=== PATIENT | male | born 1945 | race Caucasian/White ===

== ENCOUNTER 2021-03-19 19:37 | Inpatient (IN) | payer MEDICARE, BC ==
[~2021-03-19] VITALS: Ht 182.9 cm; Wt 104.5 kg
--- NOTE | ~2021-03-19 | DS ---
[facility] [address], [place] [address] Draft ADMISSION DATE: 03/20/2021 DISCHARGE DATE: 03/22/2021 REASON FOR ADMISSION: This 75-year-old white man presented to the emergency room late evening with severe right lower abdominal pain. He is noted to have an elevated white count of more than 18,000. Liver enzymes were normal. The patient has a distant history of prostatectomy and subsequent bladder perforation causing peritonitis a number of years ago requiring operative management. The patient has had chronic recurrent right lower abdominal pain, which culminated in severe pain on the day of admission. His evaluation in the emergency room by Dr. Lynch included a CT scan of the abdomen, which showed no evidence of appendicitis (nonvisualized appendix), but did show peculiar finding of a small bowel anatomy with what appeared to be possibly an internal herniation with marked inflammatory change, localized free peritoneal air. He was admitted for further evaluation and care. PERTINENT PHYSICAL EXAMINATION: GENERAL: A large white man, who does not look systemically toxic, but is uncomfortable. HEENT: Mucous membranes are slightly dry. NECK: Trachea is midline. CHEST: Clear. HEART: Regular without murmur. ABDOMEN: Distended with marked tenderness in the abdominal area, mostly on the right side. HOSPITAL COURSE: Although it was late in the evening past midnight, given his perforated viscus, his peritonitis, and so forth, he was deemed appropriate for operation without delay. He was treated with broad-spectrum antibiotic and taken to operation where a thorough limited laparotomy and exploration of the abdomen was undertaken. 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 Complete lysis of adhesions was undertaken as well as biopsies of the peritoneal fibrinous peel. Additionally, appendectomy was performed as he had a fibrotic appendix and he certainly has some chance of recurrent problems in the future, given his extensive adhesions. Operation regarding the perforated jejunum included segmental bowel resection with end-to-end anastomosis. His operation was completed approximately at 4:30 in the morning. It was prolonged and PATIENT NAME: RUBA PEREYRA DISCHARGE SUMMARY DATE OF : 47 REPORT #: [id number] PHYSICIAN: RUBA WILSON MD PCP: NO PRIMARY CARE PHYSICIAN REPORT IS CONFIDENTIAL AND NOT TO BE RELEASED WITHOUT AUTHORIZATION [facility] [address], [place] [address] Draft difficult. He was begun on a clear liquid diet rather promptly. He had an impressive rapid progress, advanced to full, and ultimately, a regular diet, which he tolerated well. By the time of discharge, he is ambulating well, tolerating a regular diet, had his incisional pain well controlled by oral analgesics and doing well. Cultures of the perforated diverticulum with associated peritoneal fluid grew Klebsiella multosa, which was found to be sensitive to Cipro. On that basis, he will be maintained on Cipro for several days following discharge. In regard to discharge, I have offered to see him in the office, so it is quite some distance for him to come here from [place], [place]; on that basis, he will follow up with his usual primary care provider, Dr. Dang, in [place], [place]. I am available to him by phone as necessary and he understands that. DISCHARGE INSTRUCTIONS: Avoidance of lifting more than 20 pounds for four weeks following date of surgery. He is permitted to shower. He will keep Steri-Strips on. He has no restrictions on his food intake. DISCHARGE MEDICATIONS: 1. Cipro 500 mg. One tablet p.o. b.i.d. #14. 2. Ibuprofen 600 mg p.o. q.6 hours as needed for pain, #60. 3. Tylenol with oxycodone (Percocet) 7.5/325, 1-2 p.o. q.6 hours as needed for pain in lieu of Tylenol itself, quantity #10. 4. Tylenol 500 mg tablets two tablets p.o. q.6 hours as needed, #60. He will resume his usual medications including, 1. Amlodipine. 2. Benazepril (Lotrel one cap p.o. nightly). 3. Aspirin 81 mg p.o. at bedtime. 4. Atorvastatin 10 mg p.o. at bedtime. 5. Doxazosin 1 mg p.o. at bedtime. 6. Omeprazole 20 mg b.i.d. for reflux. 7. Hemp oil applied topically as needed for shoulder pain. DISCHARGE DIAGNOSES: 1. 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 2. Encapsulating peritonitis (related probably to previous peritonitis, status post extensive lysis of adhesions of small bowel). 3. Appendectomy (fibrotic appendix). 4. Findings of abdominal infection, Klebsiella multosa, sensitive to Cipro. 5. Obesity. 6. Hypertension. PATIENT NAME: RUBA PEREYRA GIOVANI DISCHARGE SUMMARY DATE OF : 47 REPORT #: [id number] PHYSICIAN: RUBA WILSON MD PCP: NO PRIMARY CARE PHYSICIAN REPORT IS CONFIDENTIAL AND NOT TO BE RELEASED WITHOUT AUTHORIZATION [address] [place], [place] [address] Draft 7. Dyslipidemia. 8. Distant history of prostatectomy for cancer with complication of perforated bladder and generalized peritonitis (no doubt leading to encapsulating peritonitis currently). MD DAVID Rodriguez/SAMANTHA /[id number] cc: Claudia Madrigal Dr.ho Copies: ~ PATIENT NAME: RUBA PEREYRA DISCHARGE SUMMARY DATE OF : 47 REPORT #: [id number] PHYSICIAN: RUBA WILSON MD PCP: NO PRIMARY CARE PHYSICIAN REPORT IS CONFIDENTIAL AND NOT TO BE RELEASED WITHOUT AUTHORIZATION
[2021-03-19] MEDS ORDERED: LOTREL 10-40 M1 EACH PO (20:23)
[2021-03-19] MEDS ORDERED: BAYER CHEWABLE81 MG PO (20:24)
--- NOTE | 2021-03-20 03:53 | NUR ---
IV PATENT IN LAC.
--- NOTE | 2021-03-20 04:50 | NUR ---
PT ARRIVES TO THE FLOOR VIA HOSPITAL BED. PT IS AWAKE, DROWSY AND DISORIENTED TO PLACE AND EVENT. PT IS ORIENTED TO SELF, HIS AND DATE/YEAR. CHARGE NURSE REN AND THIS RN IN ROOM WITH SURGERY NURSE.
--- NOTE | 2021-03-20 04:50 | NUR ---
pt BACK TO MEDICAL FLOOR WITH EXERCISE SCIENCE INTERNSHIP TOMMIE. AT BEDSIDE. pt CONFUSED, DROWSY. REORIENTATION PROVIDED. PRIMARY RN ASSESSING pt. DRINKS OF WATER PROVIDED. CALL LIGHT GIVEN TO . 4L OXYGEN BY NC IN PLACE. APNIC EPISODES NOTED AT REST. SPO2 WNL. CPOX ON. pt REQUESTING TO REST AT THIS TIME.
[2021-03-20] MEDS ORDERED: ATORVASTATIN CA10 MG PO (04:57)
[2021-03-20] MEDS ORDERED: DOXAZOSIN MESYLA1 MG PO (04:58)
--- NOTE | 2021-03-20 05:00 | NUR ---
PT CONTINUES TO BE DISORIENTED TO SITUATION. REPEATS "THIS IS SO WIERD". ASSESSEMENT PERFORMED. PT REPORTS NO PAIN, ABDOMEN IS TENDER TO TOUCH, MIDLINE INCISION WOUND IS CDI. ESPINOZA DRAINING CLEAR YELLOW URINE. CMS INTACT, VSS SPO2 95-96% ON 4L NC. SCDS ON. RADIAL AND PEDAL PULSES STRONG. PT'S AT BEDSIDE.IVF INFUSING PER ORDERS. PT IS SIPPING WATER. CALL LIGHT WITHIN REACH.
--- NOTE | 2021-03-20 05:03 | NUR ---
03/20/21 0503 Luiza Gutierrez 0337 PT ARRIVED IN PACU NON RESPONSIVE TO NOXIOUS STIMULI WITH OPA IN PLACE. 0341 PT REACTIVE. OPA REMOVED. 0345 PT SNORING. REU. 0400 PT AWAKENS AND ASKS "WHERE AM I AT." REMINDED PT OF SURGERY AND RESTING. 0415 PT TRYING TO CRAWL OUT OF BED. REORIENTED PT. TAKING SIPS OF WATER FOR DRY MOUTH. 0430 PT ORIENTED TO PERSON AND TIME. UNSURE OF PLACE AT THIS TIME. YEAST MAKER WITH PT ABOUT TRIP TO [facility]. 0445 PT ASKING FOR PRATIK. 0450 TO ROOM 114. AT BEDSIDE HOLDING PT'S HAND. REPORT GIVEN TO RN.
--- NOTE | 2021-03-20 05:57 | NUR ---
in room for post op vitals #2. pt awakes with touch. reports no pain although states he has had some hallucinations. pt is calm and relaxed in bed. pt's in room. call light within reach.
--- NOTE | 2021-03-20 06:55 | NUR ---
POST OP VSS. pt AWAKENS TO RN ENTERING ROOM. URINE DRAINING FROM ESPINOZA WNL. pt DENIES PAIN AT THIS TIME. SPO2 WNL WITH 4L OXYGEN BY NC. CALL LIGHT IN REACH. IN ROOM.
--- NOTE | 2021-03-20 07:28 | EKG ---
[facility] [address] [facility] [place] [address] Signed Normal sinus rhythm Nonspecific T wave abnormality Abnormal ECG No previous ECGs available Confirmed by RENE WALDEN MD ([id number]) on 03/20/2021 7:27:56 AM Electronically Signed By: RENE WALDEN MD 03/20/21 0728 PATIENT NAME: RUBA PEREYRA Electrocardiogram DATE OF : 47 PHYSICIAN: RENE WALDEN MD REPORT #: [id number] REPORT IS CONFIDENTIAL AND NOT TO BE RELEASED WITHOUT AUTHORIZATION
--- NOTE | 2021-03-20 07:59 | NUR ---
REPORT RECEIVED. PT IN BED. DENEIS PAIN OR NAUSEA. AT BEDSIDE. LAST POST-OP VITALS COMPLETED AND STABLE. ABDOMEN INCISION C/D/I. TITRATED TO RA. SATURATIONS STAY ABOVE 93%. CALL LIGHT IN REACH.
[2021-03-20] MEDS ORDERED: OMEPRAZOLE20 MG PO (09:23)
--- NOTE | 2021-03-20 09:42 | NUR ---
In to visit with patient, who is awake and oriented to person, place and time. This is a very pleasant gentleman who was traveling with his from [place] to meet his children/grandchildren at the [facility]. Mr Dominguez states that he had his drive secondary to the pain, and he came to the ED last night after stopping at [facility], and securing a room. He states that he did not want to come in but the pain got so bad that he "had no choice." Mr Dominguez is very happy with his care, stating "You guys go a very good job here." Mr Dominguez was also very complimentary of Dr. Duong, his surgeon here at the hospital. He states that his pain is well controlled, and the staff "are very good." Mr Dominguez has no questions or concerns at this time.
--- NOTE | 2021-03-20 10:49 | NUR ---
ROUNDED WITH DR WILSON. POC DISCUSSED WITH PT. ALEXIS FORBES. 550ML OUT. PT TOLERATED WELL. PT AGREED TO AMBULATED HALLS ONCE GETS BACK. WANTS TO REST A LITTLE FOR NOW. DENIES PAIN.
[2021-03-20] MEDS ORDERED: HEMP OIL TOP (11:42)
--- NOTE | 2021-03-20 11:42 | NUR ---
MED REC COMPLETE
--- NOTE | 2021-03-20 12:08 | NUR ---
REPORTING 06/09 PAIN. [facility] ADMINSTERED. PT DRANK ALL OF CLEAR LIQUID LUNCH. [facility] WILL PLAN FOR WALK SOON.
--- NOTE | 2021-03-20 13:05 | NUR ---
PT OUT AMBULATING HALLS.
--- NOTE | 2021-03-20 13:30 | NUR ---
PT BACK TO ROOM AFTER WALKING HALLS. REPORTS 5/10 PAIN. REQUESTING TYLENOL. OFIMEV ADMINISTERED. FINISHED ALL OF CLEAR LUNCH TRAY. NO NAUSEA. DENIES FURTHER NEEDS. CALL LIGHT IN REACH.
--- NOTE | 2021-03-20 15:10 | NUR ---
Spoke with pt and . 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 He and were traveling through when he has severe pain an required bowel resection. Pt has had issues in the past. They reside in [place], [place] and will return there when medically cleared. He uses a cane for long distance walking and 0 other DME. He denies other is- sues. is very supportive and will assist as needed. Pt's pcp is Dr. Sepulveda in [place]. He also sees a drill press operator numerical control and rf technician. Plan is for dc to home when cleared medically. Pt had concern he may need a walker. PT completed eval and felt he does well with a cane and does not requirer a walker.
--- NOTE | 2021-03-20 15:23 | NUR ---
PT OUT WORKING PT THERAPY IN HALLS.
--- NOTE | 2021-03-20 17:00 | NUR ---
PT TOLERATED CLEAR DINNER WELL. SITTING UP IN CHAIR. DENIES NAUSEA. PAIN WELL CONTROLLED.
--- NOTE | 2021-03-20 17:10 | NUR ---
DR WILSON CALLED BACK TO FLOOR. TOLD ABOUT TEMP. ORDERS TO DRAW BLOOD CULTURES. BLOOD CULTURE PULLED FROM RIGHT HAND AND BROWN PORT AND SENT TO LAB.
--- NOTE | 2021-03-20 18:18 | NUR ---
PATIENT SITTING IN CHAIR TALKING ON PHONE. VITALS AND I&O'S CHARTED. CALL LIGHT IN REACH. NO FURTHER NEEDS AT THIS TIME.
--- NOTE | 2021-03-20 19:30 | NUR ---
BEDSIDE REPORT RECEIVED FROM PONCHO DICK. pt RESTING IN CHAIR. SPO2 WNL ON RA. pt RATES PAIN 2/10 AT REST, 5-6/10 WITH MOVEMENT. IVF INFUSING WNL. CALL LIGHT WITHIN REACH.
--- NOTE | 2021-03-20 20:15 | NUR ---
PRN PAIN MEDICATION ADMINISTERED FOR 5-6/10 PAIN WITH MOVEMENT. BOWEL TONES ACTIVE X 4, ABD DISTENDED, pt STATES IT'S A LOT SOFTER THAN IT WAS. FINE CRACKLES RLL. IS PROVIDED, pt DEMONSTRATES USE, 2000 ML BEST EFFORT. FOLDED DRAW SHEET PROVIDED TO BRACE WITH GETTING IN AND OUT OF CHAIR. IVF INFUSING WNL. IN ROOM. AMBULATING IN HALLWAY AT THIS TIME, SBA.
--- NOTE | 2021-03-20 21:10 | NUR ---
CALL LIGHT ANSWERED. pt QUESTIONING HOME BP MEDICATIONS. REVIEWED VS WITH PATIENT, DISCUSSED HOME MEDICATIONS WILL MOST LIKELY START TOMORROW HAD SURGERY TODAY. pt VERBALIZES UNDERSTANDING. REQUESTING TO SIT IN CHAIR AT THIS TIME. RATES PAIN 2/10. CALL LIGHT IN REACH.
--- NOTE | 2021-03-20 22:49 | NUR ---
CURRENTLY PT BED IS UNPLUGGED. PT HAS BEEN COMPLAINING THAT THE AIR MATTRESS ON THE BED IS PREVENTING HIM FROM SLEEPING AND "WHAT AM I SUPPOSE TO DO". EDUCATED ABOUT THE IMPORTANCE OF THE AIR MATTRESS AND THE PRESSURE RELIEF. HE STATED THAT HE HAS AN AIR MATTRESS AT HOME AND IT DOESN'T DO THIS. TRIED THE SLEEP MODE TO MINIMIZE THE FREQUENCY OF THE AIR SYSTEM ADJUSTMENT, GAVE HIM 5 MIN, AND WENT BACK AND CHECKED ON HIM. WHILE THE MATTRESS DOESN'T GO THROUGH MANY AIR EXCHANGES, IT WENT THROUGH TOO MANY AND "I WON'T BE ABLE TO SLEEP". WANTS ANOTHER BED, HOWEVER, EXPLAINED THAT MANY OF THE BEDS ARE THE SAME, ALSO SUGGESTED AN EGGCRATE MATTRESS OVER THE CURRENT MATTRESS, BUT HE DECLINED SAID THAT HE THINKS HAVING THE BED UNPLUGGED MIGHT WORK, EDUCATED HIM ON THE FIRM MATTRESS AND THE NEED FOR PRESSURE RELIEF. DID FIND A BED THAT MIGHT WORK, TOLD PT THAT THE BED IS OUTSIDE HIS ROOM AND WHEN HE GETS UP TO THE BATHROOM WE WILL SWITCH THE BED OUT. HE SAID IT WILL BE OK, HOWEVER, THE PLAN WILL BE TO MOVE THE BED IN.
--- NOTE | 2021-03-21 01:19 | NUR ---
CHECKED ON pt. IV PUMP ALARMING, NEW BAG IVF INFUSING WNL. pt RESTING IN BED WITH EYES CLOSED. SCDS ON.
--- NOTE | 2021-03-21 02:20 | NUR ---
pt AWAKENS TO RN ENTERING ROOM. VITAL SIGNS STABLE. SBA TO RESTROOM FOR VOID AND BACK TO BED. pt RATES PAIN 4/10 "IT FEELS LIKE ITS GETTING BETTER EACH TIME I GET UP". DENIES NEED FOR PRN PAIN MEDICATION. BOWEL TONES ACTIVE, ABD SOFT, DISTENDED, NON-TENDER WITH PALPATION. pt REQUESTING TO EAT MORE FOR BREAKFAST, EXPLAINED WILL ASK MD IN AM. IVF INFUSING WNL. CALL LIGHT IN REACH. BED ALARM ON.
--- NOTE | 2021-03-21 06:58 | NUR ---
pt RESTING IN BED AWAKE, STATES RESTED FOR A FEW HOURS. VSS. URINAL EMPTIED. pt REQUESTING CREAM OF WHEAT FOR BREAKFAST. CALLED, NEW ORDERS FOR FULL LIQUID DIET REPEATED BACK. ORDERS UPDATED.
--- NOTE | 2021-03-21 07:37 | NUR ---
this rn received report from kathleen arevalo. pt standing at bedside when this rn entered room. pt states that he is wanting to get better and advance his diet and movement at a good pace. pt denies intolerable pain.
--- NOTE | 2021-03-21 08:05 | NUR ---
THIS RN IN PTS ROOM TO CHECK ON PT. PT STATES THAT HIS PAIN IS 4/10 WHEN HE MOVES AROUND AND WORSE WHEN HE SNEEZES. PT STATES THAT AT REST HIS PAIN IS 1/10. PT STATES THAT HE HAS NO NOTED NAUSEA WITH EATING AND IS DOING WELL. DRESSING CLEAN/DRY/INTACT.
--- NOTE | 2021-03-21 09:47 | NUR ---
IN TO HANG NEW BAG OF LR, INFUSING AT 125 MLS/HR. PT STATES HE FEELS SOME SLIGHT DISCOMFORT R/T BLOATING. ENCOURAGED PT TO WALK AND PT AGREED. AMBULATED 1 LARGE LAP AROUND NURSES STATION, TOLERATED WELL.
--- NOTE | 2021-03-21 09:56 | OR ---
[facility] [address], [place] [address] Signed DATE OF OPERATION: 03/20/2021 SURGEON: Ruba Wilson MD PREOPERATIVE DIAGNOSES: Acute peritonitis, perforated viscus with localized free air, possible internal hernia. POSTOPERATIVE DIAGNOSES: 1. Perforated jejunal diverticulum. 2. 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 History of mesh implant, abdominal wall (newly revealed). PROCEDURES: 1. Laparotomy with extensive lysis of adhesions. 2. Segmental small bowel resection with end-to-end enteroenterostomy (jejunum). 3. Appendectomy. 4. Peritoneal biopsy (capsulitis biopsy). ANESTHESIA: General endotracheal, Bassem Boudreaux CRNA, as well as postoperative bilateral TAP block. INDICATION: This 75-year-old white male presented to the emergency room late in the evening today, with severe right lower abdominal pain. He is noted to have an elevated white count greater than 18,000. Liver enzymes were normal. The patient has a distant history of prostatectomy with subsequent bladder perforation causing peritonitis several years ago, requiring operative management. The patient also has chronic recurrent right lower abdominal pain, which culminated in severe pain today. His evaluation in the emergency room by Dr. Mina included a CT scan of the abdomen, which showed no evidence of appendicitis (appendix nonvisualized), but did show a peculiar finding of his small bowel anatomy with what appeared possibly to be internal herniation with marked inflammatory change and localized free peritoneal air. Clinical examination shows peritonitis, particularly tender in the right lower abdomen. Despite late hour (midnight), I have recommended exploration promptly for perforated viscus. He has been given Zosyn antibiotic, Pepcid intravenously, and is to undergo laparotomy and remedy of the problem whatever its cause. The risks of bleeding, infection, need for bowel resection, and other unforeseen complications were reviewed with the patient and his . They understand and wished to proceed. Electronically Signed By: RUBA WILSON MD 03/21/21 0956 PATIENT NAME: RUBA PEREYRA OPERATIVE REPORT DATE OF : 47 REPORT #: [id number] PHYSICIAN: RUBA WILSON MD PCP: NO PRIMARY CARE PHYSICIAN REPORT IS CONFIDENTIAL AND NOT TO BE RELEASED WITHOUT AUTHORIZATION [facility] [address] [place], [place] [address] Signed FINDINGS: Through limited midline incision abdominal entry showed a milky somewhat purulent appearance. There was not generalized peritonitis. There appeared to be a sclerosing capsulitis of the peritoneal cavity. Not mentioned by the patient nor expected at all was finding of properitoneal mesh from prior abdominal wall reconstruction or hernia repair. This was peculiar, as incisions for such implantation were not seen on abdominal preparation. Later, multiple small trocar site incisions were noted. Ultimately, it was found the offending problem was a perforated jejunal diverticulum, only partially contained in the mesentery itself. The sclerosing capsulitis of the peritoneal cavity was likely related to distant history of bladder perforation and abdominal peritonitis previously. The appearance of small bowel loops with unusual angulation deformity and various pockets within the mesentery, likely gave appearance of internal herniation, but there was no such internal herniation that I could see. The adhesive tissue was biopsied and the bowel freed entirely from the ligament of Treitz to the terminal ileum. This took a long time but was accomplished safely and without enterotomy. Segmental resection of the jejunal perforated segment was undertaken with end-to-end anastomosis with good functional appearance. DESCRIPTION OF PROCEDURE: The patient was brought to the operating room, given a general endotracheal anesthetic. Preoperative antibiotic Zosyn had been given. Sequential compression device stockings were used. A Frias catheter was placed without problem. The abdomen was clipped and prepared with a chlorhexidine solution and draped sterilely. An incision was made in the midline above and below the umbilicus. The abdomen was entered showing a somewhat milky appearance of fluid. There was no sign of generalized erythema or peritonitis and no ascites. The small bowel was found to have a relatively thickened capsule over much of it. The bowel loops could be freed generally. Upon withdrawal of the bowel loops from the abdominal cavity, segments of bowel were markedly incorporated with each other in this fibrous capsule. Ultimately the area in question was found, which proved to be about 50 cm from the ligament of Treitz and was a perforated mesenteric side jejunal diverticulum. There was localized peritonitis and purulence in this area. This area was marked with a silk stitch on the antimesenteric side to be attended to later. The small bowel was freed of its adhesions throughout, as were angulation deformities and findings that would suggest likely cause of his chronic right lower abdominal pain. Extensive lysis of adhesions was undertaken, ultimately freeing the entire bowel from the ligament of Treitz to the terminal ileum. Extreme care was taken to avoid any enterotomy and there were no enterotomies throughout the procedure. The sigmoid colon was rather mobile, as was the right colon. Once the bowel was completely freed, Electronically Signed By: RUBA WILSON MD 03/21/21 0956 PATIENT NAME: RUBA PEREYRA OPERATIVE REPORT DATE OF : 47 REPORT #: [id number] PHYSICIAN: RUBA WILSON MD PCP: NO PRIMARY CARE PHYSICIAN REPORT IS CONFIDENTIAL AND NOT TO BE RELEASED WITHOUT AUTHORIZATION [facility] [address] [place], [place] [address] Signed examination of the ileum and cecum was undertaken and a fibrotic long appendix was noted. Appendectomy was deemed advisable under the circumstances of his abdominal condition and some possibility of future issues, particularly given his peritoneal encapsulated adhesions. The mesentery was secured with hemostats to vascular pedicles to the appendix secured with 2-0 silk ties. The base of the appendix was crushed and milked distally and the crush ricardo was ligated with a 2-0 Vicryl suture. The appendix was amputated. The stump was cauterized and inverted with 2-0 Vicryl suture. The small bowel was run once again showing no sign of enterotomy, only the perforated diverticulum on the mesenteric side of the jejunal diverticular perforation. Careful consideration of management was made. It was deemed most advisable to do segmental small bowel resection. The mesentery was scored with electrocautery and secured with hemostats and ligated with 2-0 silk ties. A KAYLAH stapling device was used to transect the segment of bowel. An end-to-end enteroenterostomy was then accomplished in a two layer technique with interrupted 3-0 silk suture and interrupted 3-0 Vicryl suture. The mesenteric defect was secured with running 3-0 silk. Irrigation was undertaken. During the course of the extensive lysis of adhesions, several segments of the sclerosing capsulitis of the fibrinous covering of the bowel was sent for pathology; consideration for examination for granulomatous peritonitis findings will be made with the pathologist. Attention was turned towards closure after irrigation of the abdomen. Midline fascia, which included divided prosthetic mesh was reapproximated with running #1 Prolene suture. Subcutaneous tissue was irrigated and the skin closed with running subcuticular 3-0 Vicryl. Steri-Strips were applied, as was an Acticoat dressing. The patient then underwent bilateral TAP blocks for postoperative analgesic benefit by the computer typesetter keyliner. He was ultimately extubated and transferred to recovery room in good condition having suffered no complication. Sponge, needle, and instrument counts reported as correct x3. Blood loss was 25 mL. Operation was prolonged difficulty related to adhesiolysis, that was accomplished safely. Ending time about 4;30 am. Ruba Wilson MD /MODL /[id number] Electronically Signed By: RUBA WILSON MD 03/21/21 0956 PATIENT NAME: RUBA PEREYRA OPERATIVE REPORT DATE OF : 47 REPORT #: [id number] PHYSICIAN: RUBA WILSON MD PCP: NO PRIMARY CARE PHYSICIAN REPORT IS CONFIDENTIAL AND NOT TO BE RELEASED WITHOUT AUTHORIZATION [facility] [address] [place], [place] [address] Signed cc: Adolfo Mina MD Copies: ADOLFO MINA MD ~ Electronically Signed By: RUBA WILSON MD 03/21/21 0956 PATIENT NAME: RUBA PEREYRA OPERATIVE REPORT DATE OF : 47 REPORT #: [id number] PHYSICIAN: RUBA WILSON MD PCP: NO PRIMARY CARE PHYSICIAN REPORT IS CONFIDENTIAL AND NOT TO BE RELEASED WITHOUT AUTHORIZATION
--- NOTE | 2021-03-21 09:56 | HP ---
[facility] [address], [place] [address] Signed ADMISSION DATE: 03/19/2021 REASON FOR ADMISSION: Probable perforated bowel with associated internal hernia. HISTORY OF PRESENT ILLNESS: This 75-year-old white man is from [place], [place] and is accompanied by his . They are traveling to [place], [place] from [place], [place] to have a family vacation. The patient has had longstanding episodic right lower abdominal pain, which has culminated over the past 12 hours or so to severe and intense right lower abdominal pain. He was evaluated by Dr. Mina for possibility of appendicitis. He was noted to have an elevated white count of 18.5. The CT scan showed no evidence of appendicitis (appendix not certainly visualized), but did show a loop of small bowel with some associated free air, possibly related to internal hernia obstruction and perforation. He is admitted for further evaluation and care to include emergency operation. The patient has had no nausea or vomiting and nothing to suggest total bowel obstruction particularly. He has had chronic pain in this area for quite some time, only worsening and more severe today. PAST MEDICAL HISTORY: Includes hypertension as well as abdominal obesity. He also has dyslipidemia. CURRENT MEDICATIONS: Include atorvastatin, amlodipine, benazepril, doxazosin, omeprazole, and ursodiol. PAST SURGICAL HISTORY: Includes prostatectomy with concurrent bladder injury in the distant past ([place], [place]) requiring remedy of the perforated bladder. He has had other issues along the way that have been problematic for his bladder, but in recent times no significant issue. Notably, he has voided in the ER without problem. SOCIAL HISTORY: He is retired can intake worker, prior [employer]. Lives in [facility]. REVIEW OF SYSTEMS: He denies any shortness of breath or chest pain. He has had no dysphagia, dysuria, or hematemesis. Electronically Signed By: RUBA WILSON MD 03/21/21 0956 PATIENT NAME: RUBA PEREYRA HISTORY AND PHYSICAL DATE OF : 47 REPORT #: [id number] PHYSICIAN: RUBA WILSON MD PCP: NO PRIMARY CARE PHYSICIAN REPORT IS CONFIDENTIAL AND NOT TO BE RELEASED WITHOUT AUTHORIZATION [facility] [address], [place] [address] Signed PHYSICAL EXAMINATION: GENERAL: This is a pleasant white man who does not look particularly systemically toxic (yet). VITAL SIGNS: His vital signs show a temperature of 98.7, pulse of 81, blood pressure 143/69, O2 saturation on room air is 95%. HEENT: Mucous membranes are somewhat dry and IV is running concurrently. Trachea is midline. CHEST: Clear. HEART: Regular without murmur. ABDOMEN: Obese, but soft. He has peritoneal signs including severe tenderness in the right lower quadrant. Rovsing sign is actually equivocal. Faint trocar site scars are noted. EXTREMITIES: Show no clubbing, cyanosis, or edema. LABORATORY STUDIES: Show a white count of 18.5, hematocrit of 44.4, platelets 282,000. Chem profile shows an elevated creatinine of 1.29, glucose 132. Liver enzymes are normal. Lipase 22. Urinalysis; specific gravity 1.035, otherwise normal. COVID test is pending currently. ASSESSMENT: The patient has peritonitis and CT scan findings suggestive of perforated viscus internally, with strong suggestion of a probable internal hernia. My review of the CT scan and review of the report provided by the nighttime radiologist shows an unusual pattern of the sigmoid colon and small bowel loop which has deja enteric inflammatory change and a suggestion of free air. I have some suspicion that this may represent a transmesenteric herniation of small bowel through the sigmoid mesentery given the location of the sigmoid and a bowel loop, which appears to be internally obstructed. Remedy for this problem likely would include laparotomy with reduction of the hernia, probable resection of bowel if it is gone to the point of perforation due to necrosis. The risk of bleeding, infection, need for ostomy unlikely, as well as need for bowel resection and other indicated procedures were reviewed in detail. He understands and wished to proceed. Additionally noted was a splint on his right hand. It sounds as though he has had progressive carpal tunnel problems. He is considering surgical remedy of this as he is right-hand dominant. There is no sign of acute problem now that the splint on his hand remains in place. Electronically Signed By: RUBA WILSON MD 03/21/21 0956 PATIENT NAME: RUBA PEREYRA HISTORY AND PHYSICAL DATE OF : 47 REPORT #: [id number] PHYSICIAN: RUBA WILSON MD PCP: NO PRIMARY CARE PHYSICIAN REPORT IS CONFIDENTIAL AND NOT TO BE RELEASED WITHOUT AUTHORIZATION [facility] [address], [place] [address] Signed Ruba Wilson MD JM/MODL /[id number] cc: Adolfo Mina MD Copies: ADLOFO MINA MD ~ Electronically Signed By: RUBA WILSON MD 03/21/21 0956 PATIENT NAME: HAFSARUBA HISTORY AND PHYSICAL DATE OF : 47 REPORT #: [id number] PHYSICIAN: RUBA WILSON MD PCP: NO PRIMARY CARE PHYSICIAN REPORT IS CONFIDENTIAL AND NOT TO BE RELEASED WITHOUT AUTHORIZATION
--- NOTE | 2021-03-21 10:30 | NUR ---
I was able to meet with Mr. Dominguez this morning in regards to his care at the hospital. Mr. Dominguez remains very happy with his care, stating "They are super great. The surgeon is also very proffessional." Mr. Dominguez' also came in the room while we were visiting. She also expressed gratitude for the care that her has had while here in the hospital. We were also able to discuss some information regarding Mr. Dominguez upcoming discharge. We talked about the importance of keeping his follow-up appointments, and taking his medication properly. I also let Mr. Dominguez know that a pharmacist would discuss all his home medications with him prior to his discharge from the hospital. Our discussion was very pleasant, at this time Mr. Dominguez, and his both deny further questions or concerns.
--- NOTE | 2021-03-21 11:00 | NUR ---
THIS RN IN PTS ROOM TO CHECK ON PT. PT STATES THAT HIS PAIN IS CREEPING UP THERE AND WOULD LIKE PAIN MEDS AFTER LUNCH. THIS RN STATED UNDERSTANDING. PT HAS NO OTHER CONCERNS AT THIS TIME
--- NOTE | 2021-03-21 12:15 | NUR ---
PATIENT UP IN HIS CHAIR FOR LUNCH, AT SIDE. WARMS WIPES AND SHAVING CREAM PROVIDED FOR PERSONAL USE. CALL LIGHT IN REACH, NO OTHER NEEDS AT THIS TIME
--- NOTE | 2021-03-21 13:30 | NUR ---
THIS RN IN PTS ROOM TO CHECK ON PT AFTER HE GOT PAIN MEDS. PT WAS JUST OUT WALKING THE HALLS. PTS AT BEDSIDE. PT STATES THAT HIS PAIN IS MUCH BETTER AFTER THE PAIN MEDS. PT ALSO REPORTS THAT HE HAS BEEN PASSING GAS, PT HAS NO OTHER CONCERNS AT THIS TIME.
--- NOTE | 2021-03-21 14:00 | NUR ---
Spoke with pt and . States he is feeling well and was able to take thin mashed potatoes. Wants to go home tomorrow. Again encouraged to not [place] out to fast. is in agreement and cont. to remind pt he should stay until cleared by . They deny needs for dc.
--- NOTE | 2021-03-21 17:30 | NUR ---
PT CALLED RN INTO ROOM TO CHANGE FLUID BAG. PT SITTING IN CHAIR AND USING IS. PT STATES THAT HIS PAIN IS DOING GOOD. AT BEDSIDE. NO CONCERNS NOTED BESIDES WANTING REGULAR FOOD
--- NOTE | 2021-03-21 21:15 | NUR ---
PATIENT SITTING UP IN BEDSIDE ARM CHAIR. THIS RN AND SHAHRAM EUBANKS ARE IN THE ROOM. PATIENT GIVEN 30MG IV TORADOL FOR 4/10 ABD PAIN AND PATIENT GIVEN HIS EVENING MEDS. PATIENT'S IS SITTING ON THE COUCH VISITING. PATIENT'S WATER REFILLED AND CHA IS GOING TO BRING THE PATIENT A SNACK. PATIENT HAS NO OTHER CARE NEEDS AT THIS TIME. CALLLIGHT IS IN REACH.
--- NOTE | 2021-03-21 21:40 | NUR ---
IN TO GET VITALS, PT RECENTLY VOIDED, CRACKERS FOR PT TO SNACK ON PROVIDED, BREAKFAST ORDER WRITTEN DOWN, NO FURTHER NEEDS AT THIS TIME
--- NOTE | 2021-03-21 23:30 | NUR ---
PATIENT RESTING QUIETLY IN BED ON HIS RIGHT SIDE, EYES CLOSED, RESPIRATIONS REGULAR AND EVEN. PATIENT'S ON THE SOFA LOOKING AT HER PHONE. HAD TO RESET THE IV PUMP DUE TO A DISTAL OCCLUSION. NO TOHER CARE NEEDS NOTED IN THE ROOM AT THIS TIME. CALL LIGHT IS IN REACH.
--- NOTE | 2021-03-22 01:28 | NUR ---
PATIENT CALLED AND IV WAS BEEPING. IV IS DONE AND SL. PATIENT'S URINAL EMPTIED AND PATIENT HAS NO OTHER NEEDS AT THIS TIME. CALL LIGHT IN REACH AND PATIENT'S IS ASLEEP ON THE COUCH.
--- NOTE | 2021-03-22 02:28 | NUR ---
PATIENT RESTING QUIETLY, EYES CLOSED, RESPIRATIONS REGULAR AND EVEN, CALL LIGHT IN REACH. PATIENT'S IS ASLEEP ON THE COUCH.
--- NOTE | 2021-03-22 03:34 | NUR ---
PATIENT RESTING QUIETLY IN LOW FOWLERS POSITION, EYES ARE CLOSED, RESPIRATIONS REGULAR AND EVEN, CALL LIGHT IN REACH. PATIENT'S IS ASLEEP ON THE SOFA.
--- NOTE | 2021-03-22 05:00 | NUR ---
PATIENT RESTING QUIETLY IN BED SUPINE. RESPIRATIONS ARE EVEN AND REGULAR, EYES ARE CLOSED, IS ASLEEP ON THE COUCH, CALL LIGHT IS IN PATIENT'S REACH.
--- NOTE | 2021-03-22 06:15 | NUR ---
VITALS DONE AT THIS TIME
--- NOTE | 2021-03-22 06:18 | NUR ---
PATIENT HAS SLEPT WHEN STAFF HAS NOT NEEDED TO BE IN THE ROOM. PATIENT'S LUNGS ARE CLEAR, BOWEL TONES ACTIVE, AND PATIENT'S MIDLINE ABD INCISION IS C/D/I. PATIENT SALINE LOCKED AND IS INDEPENDENT IN THE ROOM. PATIENT'S HAS SPENT THE NIGHT SLEEPING ON THE COUCH. VS STABLE. CALL LIGHT IS IN REACH.
--- NOTE | 2021-03-22 09:15 | NUR ---
REPORT RECEIVED FROM NIGHT RN AND PT. CARE RESUMED. PT. IS UP IN THE CHAIR WITH . ALERT AND ORIENTED. PT. STATES HIS PAIN IS 3/10 ACHING IN HIS ABDOMEN AND WORSE WITH MOVEMENT. ADMIN. PRN MOTRIN. LUNGS CLEAR AND BOWEL TONES HYPOACTIVE IN ALL 4 QUADS. PT. HAD A SMALL BM THIS MORNING. TRACE EDEMA PRESENT IN BLE AND PT. STATES IS NORMAL FOR HIM. ABD MIDLINE ACTICOAT DRESSING IS C.D.I. PT. UP TO AMBULATE WITH .
--- NOTE | 2021-03-22 10:45 | NUR ---
Spoke with pt and and they plan on dc today if Dr. Lowry in agreement. Plan to dc to [facility]. Son and grandchildren they were going to meet near [place] for vacation, are on their way to [facility] so they can see them. Plan to stay at [facility] through [place]. states this makes her feel better, as they will remain in the area if pt needs anything. She is concerned about the drive to [place].
--- NOTE | 2021-03-22 13:59 | NUR ---
PT. RESTING IN CHAIR WITH PRESENT. ALERT AND ORIENTED. PT. DENIES PAIN EXCEPT WITH EXERTION AND AMBULATING. MIDLINE ACTICOAT DRESSING IS CDI. ABD. FIRM WITH HYPOACTIVE BOWEL TONES. PT. REPORTS HE IS PASSING GAS. DENIES NAUSEA. PT. LEFT RESTING WITH CALL LIGHT IN REACH.
[2021-03-22] MEDS ORDERED: OXYCODON-ACETA1 EAC2 PO (17:39)
[2021-03-22] MEDS ORDERED: ACETAMINOPHEN500 MG PO (17:39)
[2021-03-22] MEDS ORDERED: IBUPROFEN600 MG PO (17:39)
[2021-03-22] MEDS ORDERED: CIPROFLOXACIN500 MG PO (17:39)
--- NOTE | 2021-03-22 19:01 | NUR ---
ALL DISCHARGE INSTRUCTIONS REVIEWED AND QUESTIONS ANSWERED. PT. LEFT WITH ALL BELONGINGS VIA WHEELCHAIR WITH .
--- NOTE | 2021-03-22 19:55 | NUR ---
CLARIFICATION OF DC ORDERS BEING QUESTIONED BY [facility], HYDROCODONE 7.5/325MG 1-2 PRN AND TYLENOL 500MG 2 TABBS Q6H PRN. WILL CALL DR WILSON ON THIS LAST ONE.
--- NOTE | 2021-03-23 17:14 | PATH ---
[facility] [address] [facility] [place] [place] [address] Signed SPECIMEN(S): A PERITONEAL BIOPSIES SPECIMEN(S): B APPENDIX SPECIMEN(S): C SMALL BOWEL, JEJUNUM SPECIMEN SOURCE: A. PERITONEAL BIOPSIES B. APPENDIX C. SMALL BOWEL, JEJUNUM CLINICAL HISTORY: Bowel perforation. FINAL PATHOLOGIC DIAGNOSIS: A. Peritoneum, biopsy: - Peritoneal tissue with vascular congestion, mixed acute and chronic inflammation, and fibrosis. - No evidence of malignancy. B. Appendix, appendectomy: - Appendix with fibrous obliteration of the lumen. C. Jejunum, resection: - Diverticulitis with peridiverticular abscess formation. - Acute serositis. - Viable surgical margins. - No evidence of malignancy. COMMENT: Regarding specimen C: Definitive gross or histologic evidence of bowel perforation is not identified. NAL:cml:C2NR MICROSCOPIC EXAMINATION: Histologic sections of all submitted blocks are examined by light microscopy. These findings, together with the gross examination, support the pathologic diagnosis. GROSS DESCRIPTION: Three specimens are received in three containers, labeled "JR." A. The specimen, labeled "JR, peritoneal biopsy," is received in formalin and consists of two irregular shaped fibromembranous tissue fragments that aggregate measure 3.0 x 2.0 x 0.5 cm. The surface is violaceous, smooth and focally congested sectioning through the specimen is PATIENT NAME: RUBA PEREYRA PATHOLOGY DATE OF : 47 REPORT #: [id number] PHYSICIAN: WILI PATHOLOGY PCP: NO PRIMARY CARE PHYSICIAN REPORT IS CONFIDENTIAL AND NOT TO BE RELEASED WITHOUT AUTHORIZATION [facility] [address], [place] [address] Signed grossly unremarkable. Refrigeration Unit Repairer sections are submitted in cassette (A1). B. The specimen, labeled "JR, appendix," is received in formalin and consists of Specimen: Appendix with mesoappendix. Dimensions: 10.2 x 0.5 cm. Serosa: [place]-schmidt, focally congested. Perforation: Not grossly identified. Inking: Staple line is inked black. Mucosa: [place]-schmidt. Fecalith: Not grossly identified. Additional: None. Refrigeration Unit Repairer sections are submitted in cassette (B1). C. The specimen, labeled "JR, small bowel, jejunum," is received in formalin and consists of previously opened, unoriented small bowel that measures 7.5 cm in length and 7.2 cm in inner circumference. The serosal surface is violaceous, focally congested. The mucosa is a pink-schmidt and folded. Sectioning through the bowel wall reveals several small diverticula. One of the diverticula extends to the fibroadipose tissue with a cyst-like defect that measuring 1.5 cm in greatest dimension. The cyst-like defect is empty. Definitive perforation is not identified. Refrigeration Unit Repairer sections are submitted as follows: Cassette Summary: (C1) Surgical resection margins, shave (C2) The bowel wall, random section (C3) Diverticula with cyst-like defect JS (under the direct supervision of a pathologist) The Gross Description was prepared using a voice recognition system. The report was reviewed for accuracy; however, sound-alike word errors, addition and/or deletions may occur. If there is any question about this report, please contact Client Services. PERFORMING LABORATORY: The technical component was performed by [facility], [address] [place] [id number] (Electrical Engineering Technician: Carol Smith MD; CLIA# [id number]). Professional interpretation was performed by [facility], [address] [address], [place] [address] (CLIA# [id number]). Diagnostician: Nelly Luna MD PATIENT NAME: RUBA PEREYRA PATHOLOGY DATE OF : 47 REPORT #: [id number] PHYSICIAN: WILI PATHOLOGY PCP: NO PRIMARY CARE PHYSICIAN REPORT IS CONFIDENTIAL AND NOT TO BE RELEASED WITHOUT AUTHORIZATION [facility] [address], [place] [address] Signed Pathologist Electronically Signed 03/23/2021 Copies: ~ PATIENT NAME: RUBA PEREYRA PATHOLOGY DATE OF : 47 REPORT #: [id number] PHYSICIAN: WILI PATHOLOGY PCP: NO PRIMARY CARE PHYSICIAN REPORT IS CONFIDENTIAL AND NOT TO BE RELEASED WITHOUT AUTHORIZATION
== END 2021-03-22 18:34 | disposition home or self-care (01) | DRG 329 ==
LOC: ED 19:37 → MS 03-20 00:33
PROVIDERS: ADMIT Surgery; ATTEND Surgery
PROC: 0DN80ZZ Release Small Intestine, Open Approach (ICD-10-PCS; 2021-03-20)
PROC: 0DTJ0ZZ Resection of Appendix, Open Approach (ICD-10-PCS; 2021-03-20)
PROC: 0DBW0ZX Excision of Peritoneum, Open Approach, Diagnostic (ICD-10-PCS; 2021-03-20)
PROC: 3E0T3BZ Introduction of Anesthetic Agent into Peripheral Nerves and Plexi, Percutaneous Approach (ICD-10-PCS; 2021-03-20)
PROC: 3E0T33Z Introduction of Anti-inflammatory into Peripheral Nerves and Plexi, Percutaneous Approach (ICD-10-PCS; 2021-03-20)
PROC: 0DBA0ZZ Excision of Jejunum, Open Approach (ICD-10-PCS; principal; 2021-03-20 01:18)
DX: K57.00 Diverticulitis of small intestine with perforation and abscess without bleeding (principal); K65.8 Other peritonitis; B96.1 Klebsiella pneumoniae [K. pneumoniae] as the cause of diseases classified elsewhere; K66.0 Peritoneal adhesions (postprocedural) (postinfection); Z20.822 Contact with and (suspected) exposure to COVID-19; G89.18 Other acute postprocedural pain; I10 Essential (primary) hypertension; E66.9 Obesity, unspecified; E78.5 Hyperlipidemia, unspecified; K38.8 Other specified diseases of appendix; Z79.899 Other long term (current) drug therapy; Z68.31 Body mass index [BMI] 31.0-31.9, adult
CPT/HCPCS: 00840; 36415; 64488; 74177; 76942; 80053; 81001; 83690; 83735; 85025; 93005; 93010; 94760; 94762; 96375; 97161; 99285-25; A9270; C9803; J0131; J0330; J1100; J1170; J1644; J1885; J2405; J2543; J2704; J3475; J7030; J7121; Q9967; U0003